=== PATIENT | male | born 1990 | race African-American/Black ===

== ENCOUNTER 2023-12-30 23:55 | Emergency (ER) | payer OTHER ==
[~2023-12-30] VITALS: Ht 182.9 cm; Wt 132.6 kg
[2023-12-30 23:57] VITALS: TEMP 97.2
[2023-12-31] MEDS: ACETAMINOPHEN 325 MG TAB PO ONE (01:21)
[2023-12-31 01:48] VITALS: BP 174/90; O2SAT 97
== END 2023-12-31 02:14 | disposition home or self-care (01) ==
LOC: M ED 23:55
DX: S62.662A Nondisplaced fracture of distal phalanx of right middle finger, initial encounter for closed fracture (principal); S60.131A Contusion of right middle finger with damage to nail, initial encounter; Z91.013 Allergy to seafood; Y92.9 Unspecified place or not applicable; Y93.89 Activity, other specified; Y99.9 Unspecified external cause status

== ENCOUNTER → 2024-01-17 | Outpatient (CLI) | payer OTHER | LOC: M SOG 07:57 | PROVIDERS: ATTEND Physician Assistant | DX: S62.662D Nondisplaced fracture of distal phalanx of right middle finger, subsequent encounter for fracture with routine healing (principal) ==